=== PATIENT | female | born 1940 | race African-American/Black ===

== ENCOUNTER 2019-02-17 09:58 | Day surgery (SDC) | payer OTHER, BC | END 2019-02-18 10:30 | disposition home health service (06) | LOC: FASU 09:58 → FASUSAT 02-18 10:30 → FM/S 15:50 ==

== ENCOUNTER 2023-05-21 04:51 | Day surgery (SDC) | payer OTHER, BC ==
[2023-05-16 14:30] VITALS: BMI 28.2
[~2023-05-21 04:51] MED LIST: LIDOCAINE HCL 1% PRESERVATIVE FREE - 30ML VIAL IJ ONE
[2023-05-21] MEDS ORDERED: SODIUM CHLORIDE 0.9% P/F 10 ML VIAL IJ ONE ×2 (07:37→07:38)
[2023-05-21] MEDS ORDERED: LIDOCAINE HCL 1% PRESERVATIVE FREE - 30ML VIAL IJ ONE ×2 (08:38)
[2023-05-21 09:27] VITALS: BP 147/75; PULSE 70; RESP 20; TEMP 97.7
[2023-05-21] MEDS ORDERED: ACETAMINOPHEN 500 MG TABLET (FP) PO PRN (11:59)
== END 2023-05-21 11:21 | disposition home or self-care (01) ==
LOC: JASU-SURG 04:51
PROVIDERS: ATTEND Pain Medicine Pain Medicine
PROC: 01HY3MZ Insertion of Neurostimulator Lead into Peripheral Nerve, Percutaneous Approach (ICD-10-PCS; principal; 2023-05-21 08:00)
DX: G89.4 Chronic pain syndrome (principal); M25.561 Pain in right knee
CPT/HCPCS: 64555; C1778